=== PATIENT | male | born 1965 | race Caucasian/White ===

== ENCOUNTER → 2023-04-29 | Outpatient (CLI) | payer OTHER ==
--- NOTE | 2023-04-29 08:18 | XR ---
EXAMINATION TYPE: XR shoulder complete LT DATE OF EXAM: 04/29/2023 COMPARISON: NONE HISTORY: Pain TECHNIQUE: Three views are submitted. FINDINGS: The osseous structures are intact. There is no acute fracture or dislocation. The AC joint is maint ained. IMPRESSION: 1. No acute process.
== END | disposition home or self-care (01) ==
LOC: RADXRMAIN 07:56
PROVIDERS: ATTEND Emergency Medicine
DX: S46.912A Strain of unspecified muscle, fascia and tendon at shoulder and upper arm level, left arm, initial encounter (principal)

== ENCOUNTER → 2024-12-27 | Outpatient (CLI) | payer BC ==
--- NOTE | 2024-12-27 09:04 | US ---
EXAMINATION TYPE: US abdomen complete DATE OF EXAM: 12/27/2024 COMPARISON: NONE CLINICAL INDICATION: Male, 59 years old with history of R10.11 RIGHT UPPER QUADRANT PAIN; RUQ pain x 1 week TECHNIQUE: Grayscale and color Doppler imaging of the abdomen was performed. FINDINGS: EXAM MEASUREMENTS: Liver Length: 16.9 cm Gallbladder Wall: 0.2 cm CBD: 0.4 cm, color Doppler imaging was utilized to isolate the common bile duct for measurement. Spleen: 10.2 cm Right Kidney: 9.8 x 4.7 x 5.6 cm Left Kidney: 11.7 x 6.4 x 6.2 cm PRODUCE RUNNER NOTES: Pancreas: wnl Liver: 2 cysts seen, 1 in right lobe 1 in left lobe. Largest measuring 1.4 x 1.4 x 1.0cm in right lo be. Gallbladder: multiple gallstones seen. Evidence for sonographic Borden's sign: No CBD: wnl Spleen: wnl Right Kidney: wnl, No hydronephrosis, calculi or masses seen Left Kidney: wnl, No hydronephrosis, calculi or masses seen Upper IVC: wnl Abd Aorta: wnl The liver is homogenous. There 2 simple cysts identified within the liver. The intrahepatic portion of the IVC and proximal abdominal aorta are within normal limits. Cholelithiasis without wall thicken ing or surrounding fluid. Negative sonographic Borden sign. Common bile duct is unremarkable. The vi sualized portions of the pancreas are homogenous. The spleen is unremarkable. Kidneys are symmetric and free of hydronephrosis. No renal lesions are seen. IMPRESSION: 1. Cholelithiasis without evidence for acute cholecystitis. 2. Couple of simple hepatic cysts. [facility], , 12/27/2024 9:02 AM
== END | disposition home or self-care (01) ==
LOC: RADUSWWP 08:17
PROVIDERS: ATTEND Family Medicine
DX: K80.20 Calculus of gallbladder without cholecystitis without obstruction (principal); K76.89 Other specified diseases of liver
CPT/HCPCS: 76700